=== PATIENT | female | born 1985 | race Caucasian/White ===

== ENCOUNTER 2016-02-26 09:58 | Observation (INO) | payer OTHER ==
[~2016-02-26] VITALS: Ht 167.6 cm; Wt 108.0 kg
[2016-02-26] VITALS (7 sets, daily range): BP systolic 115–124; BP diastolic 66–78
[~2016-02-26 09:58] MED LIST: ALPR0.254 PO; CEFAZOLIN 1GM IVPB FOR OMNI 50 ML IV PRN; CITA20TA5 PO; FENTANYL PF 100 MCG/2 ML VIAL. IV PRN; GEMF600T3 PO; HYDROMORPHONE 2 MG/ML VIAL. IV PRN; IV RINGERS,LACTATED 1000ML 1,000 ML IV SCH; LEVO25TA4 PO; LIDOCAINE 1% 1 ML SYRINGE. ID PRN; LIDOCAINE 1%/EPI 1:100,000 20 ML VIAL. ONE; METHYLENE BLUE 1% 1 ML VIAL. ONE; ONDANSETRON PF 4 MG/2 ML VIAL. IV PRN; PROAIR HFA8.5 GM INH; PROCHLORPERAZINE 10 MG/2 ML VIAL. IV PRN
[2016-02-26 10:21] LABS: NEG OBC UR NEG; POS OBC UR POS
[2016-02-26] MEDS ORDERED: AMOX1TAB58 PO (10:24)
[2016-02-26] MEDS ORDERED: MIDAZOLAM HCL 2 MG/2 ML VIAL. ONE (10:53)
[2016-02-26] MEDS ORDERED: SEVOFLURANE > 120 MINUTES. IH ONE (10:53)
[2016-02-26] MEDS ORDERED: FENTANYL PF 100 MCG/2 ML VIAL. ONE (10:53)
[2016-02-26] MEDS ORDERED: GLYCOPYRROLATE 1 MG/5 ML VIAL. ONE (10:53)
[2016-02-26] MEDS ORDERED: LIDOCAINE 2% 100 MG/5 ML DISP.SYRIN. ONE (10:54)
[2016-02-26] MEDS ORDERED: PROPOFOL 20 ML IV ONE (10:54)
[2016-02-26] MEDS ORDERED: ROCURONIUM 50 MG/5 ML VIAL. ONE (10:54)
[2016-02-26] MEDS ORDERED: KETOROLAC 30 MG/ML SYRINGE FOR OR. INJ ONE (10:54)
[2016-02-26] MEDS ORDERED: DEXAMETHASONE SOD PHOS 20 MG/5 ML VIAL. ONE (10:54)
[2016-02-26] MEDS ORDERED: ONDANSETRON PF 4 MG/2 ML VIAL. ONE (10:54)
[2016-02-26] MEDS ORDERED: NEOSTIGMINE METHYLSULFATE 5 MG/5 ML SYRINGE. ONE (10:54)
[2016-02-26 11:01] LABS: BASO # 0.1 x10^3/uL (0.0-0.2); BASO % 1 % (0-3); EOS % 3 % (0-3); HEMATOCRIT 43.9 % (36.0-47.0); HEMOGLOBIN 15.1 g/dL (12.0-15.5); LYMPH # 3.6 x10^3/uL (1.0-4.8); LYMPH % 34 % (24-48); MEAN CORPUSCULAR HEMOGLOBIN 31 pg (25-35); MEAN CORPUSCULAR HGB CONC 34 g/dL (31-37); MEAN CORPUSCULAR VOLUME 90 fL (79-100); MONO % 8 % (0-9); NEUT % 53 % (31-73); PLATELET COUNT 394 x10^3/uL (140-400); RED BLOOD COUNT 4.87 x10^6/uL (3.50-5.40); RED CELL DISTRIBUTION WIDTH 12.6 % (11.5-14.5); WHITE BLOOD COUNT 10.5 x10^3/uL (4.0-11.0)
[2016-02-26] MEDS ORDERED: ACETAMINOPHEN INTRAVENOUS 100 ML IV ONE (11:44)
[2016-02-26] MEDS ORDERED: CEFAZOLIN 1GM IVPB FOR OMNI 50 ML IV ONE (11:56)
--- NOTE | 2016-02-26 12:19 | PDOC ---
BRIEF OPERATIVE NOTE Pre-Op Diagnosis AUB Post-Op Diagnosis Same Procedure Performed TV Surgeon Dr. Perales Anesthesia Type: General Blood Loss 100 ml Specimens Obtained uterus and cervix Findings enlarged uterus, nml fallopian tubes and ovaries emil. Complications none Additional Remarks ptSHONNA Garber Jr, MD Feb 26, 2016 12:19
[2016-02-26] MEDS ORDERED: ONDANSETRON PF 4 MG/2 ML VIAL. IV PRN (12:30)
[2016-02-26] MEDS ORDERED: DIPHENHYDRAMINE 50 MG/ML VIAL IV PRN (12:30)
[2016-02-26] MEDS ORDERED: PROCHLORPERAZINE 10 MG/2 ML VIAL. IV PRN (12:30)
[2016-02-26] MEDS ORDERED: KETOROLAC TROMETHAMINE 30 MG/ML SYRINGE. IV PRN (12:30)
[2016-02-26] MEDS ORDERED: CALCIUM CARBONATE 500 MG TAB.CHEW PO PRN (12:30)
[2016-02-26] MEDS ORDERED: DIPHENHYDRAMINE HCL 25 MG CAPSULE PO PRN (12:30)
[2016-02-26] MEDS ORDERED: ZOLPIDEM 5 MG TABLET. PO PRN (12:30)
[2016-02-26] MEDS ORDERED: SIMETHICONE 80 MG TAB.CHEW PO PRN (12:30)
[2016-02-26] MEDS ORDERED: DEXTROSE 50% 25 GM / 50ML DISP.SYRIN. IV PRN (12:30)
[2016-02-26] MEDS ORDERED: 0.9 % SODIUM CHLORIDE 10 ML DISP.SYRIN. IV PRN (12:30)
[2016-02-26] MEDS: FENTANYL PF 100 MCG/2 ML VIAL. IV PRN ×2 (12:40→12:51)
[2016-02-26] MEDS: MORPHINE SULFATE 2 MG/ML DISP.SYRIN. IV PRN ×2 (13:01→13:15)
[2016-02-26] MEDS: OXYCODONE/APAP 5/325 TABLET. PO PRN ×2 (15:22→19:42)
[2016-02-26] MEDS: NICOTINE 14MG PATCH. TD PRN (18:33)
--- NOTE | 2016-02-26 19:28 | OP ---
DATE OF SURGERY: PREOPERATIVE DIAGNOSES: Abnormal uterine bleeding. POSTOPERATIVE DIAGNOSES: Abnormal uterine bleeding. PROCEDURE: Transvaginal hysterectomy. SURGEON: Shonna Perales MD. ANESTHESIA: GETA. ESTIMATED BLOOD LOSS: 100 mL. COMPLICATIONS: None. FINDINGS: Enlarged uterus, normal fallopian tubes and ovaries bilaterally. SUMMARY: A 30-year-old with abnormal uterine bleeding, unresponsive to medical treatment or endometrial ablation. She was counseled on transvaginal hysterectomy. Risks, benefits and expectations and voiced a clear understanding to proceed. DESCRIPTION OF PROCEDURE: The patient was taken to surgery suite and placed in dorsal lithotomy position. She was prepped with Betadine solution and draped in a sterile fashion. After adequate anesthesia, a weighted speculum and curved Richelle placed vaginally. The anterior and posterior lip of the cervix were grasped with Santiago clamps. Lidocaine 1% with epinephrine was injected in the cervix in a circumferential manner. Bovie cautery was utilized to circumscribe the cervix. The vaginal mucosa was dissected away from the lower uterine segment using blunt dissection with a moist Ray-Michelle. The parametrial tissue was clamped bilaterally with curved Ekta clamps, cut and suture ligated with 2-0 Vicryl suture. Posterior cul-de-sac was entered sharply with curved Ritter scissors. The long weighted speculum was placed. Uterosacral ligaments were clamped bilaterally, cut and suture ligated. The anterior cul-de-sac was entered sharply with Metzenbaum scissors. The cardinal ligaments were clamped bilaterally, cut and suture ligated. The uterus was then retroverted. The round ligament and uteroovarian pedicles were clamped bilaterally, cut and suture ligated. The uterus and cervix were then removed. The fallopian tubes and ovaries appeared normal. A modified Sheriff's culdoplasty was performed incorporating the uterosacral ligaments bilaterally. The remainder of the vaginal cuff was reapproximated using 2-0 Vicryl suture in a [id number] manner. Moist vaginal packing was placed. The patient tolerated the procedure well and was taken to recovery room in stable condition. Sponge and needle count correct x 3. SHONNA PERALES MD DR: LUCILLE/arnie JOB#: [id number] / [id number]
[2016-02-26] MEDS: GABAPENTIN 300 MG CAPSULE. PO SCH (21:56)
[2016-02-27] MEDS ORDERED: PNEUMOCOCCAL VAX SCREEN BY RX. MC PRN (01:15)
[2016-02-27] MEDS: OXYCODONE/APAP 5/325 TABLET. PO PRN ×3 (04:28→13:38)
[2016-02-27 05:13] LABS: BASO % 0 % (0-3); EOS % 0 % (0-3); HEMATOCRIT 38.7 % (36.0-47.0); HEMOGLOBIN 12.8 g/dL (12.0-15.5); LYMPH # 1.5 x10^3/uL (1.0-4.8); LYMPH % 10 % (24-48); MEAN CORPUSCULAR HEMOGLOBIN 30 pg (25-35); MEAN CORPUSCULAR HGB CONC 33 g/dL (31-37); MEAN CORPUSCULAR VOLUME 92 fL (79-100); MONO % 5 % (0-9); NEUT % 84 % (31-73); PLATELET COUNT 339 x10^3/uL (140-400); RED BLOOD COUNT 4.22 x10^6/uL (3.50-5.40); RED CELL DISTRIBUTION WIDTH 12.9 % (11.5-14.5)
[2016-02-27 05:57] VITALS: BP 123/78
[2016-02-27] MEDS: GABAPENTIN 300 MG CAPSULE. PO SCH (08:45)
[2016-02-27 08:57] VITALS: BP 118/81
[2016-02-27] MEDS ORDERED: PNEUMOC CONJ VACC 23-VALENT 0.5 ML VIAL. VAX IM ONE (09:00)
[2016-02-27 09:07] VITALS: BP 118/81
[2016-02-27] MEDS ORDERED: BENZOCAINE/MENTHOL LOZENGE. PO PRN (11:00)
[2016-02-27] MEDS ORDERED: GUAIFENESIN/CODEINE 100mg/10mg 5 ML LIQUID. PO PRN (11:00)
[2016-02-27] MEDS: NICOTINE 14MG PATCH. TD PRN (11:34)
--- NOTE | 2016-02-27 14:45 | PDOC ---
SURGICAL PROGRESS NOTE Subjective Pt. feeling well. Pain controlled. She has dry cough and requests cough medicine Vital Signs Vital Signs Date Time Temp Pulse Resp B/P Pulse Ox O2 Delivery O2 Flow Rate FiO2 02/27/16 13:38 18 Room Air 02/27/16 09:07 97.8 98 118/81 94 2.0 97.8 I&O Intake and Output 02/27/16 07:00 Intake Total 2250 ml Output Total 400 ml Balance 1850 ml Intake Oral 800 ml IV Total 1450 ml Output Urine Total 400 ml PATIENT HAS A STOUT: No General: Alert, Oriented X3, Cooperative HEENT: Atraumatic Lungs: Clear to auscultation Heart: Regular rate Abdomen: Normal bowel sounds, Soft, No tenderness Psych/Mental Status: Mental status NL Labs Laboratory Tests Test 02/26/16 10:15 02/26/16 10:35 02/27/16 04:00 Urine Test Negative (NEG) White Blood Count 10.5x10^3/uL (4.0-11.0) 15.0x10^3/uL (4.0-11.0) Red Blood Count 4.87x10^6/uL (3.50-5.40) 4.22x10^6/uL (3.50-5.40) Hemoglobin 15.1g/dL (12.0-15.5) 12.8g/dL (12.0-15.5) Hematocrit 43.9% (36.0-47.0) 38.7% (36.0-47.0) Mean Corpuscular Volume 90fL (79-100) 92fL (79-100) Mean Corpuscular Hemoglobin 31pg (25-35) 30pg (25-35) Mean Corpuscular Hemoglobin Concent 34g/dL (31-37) 33g/dL (31-37) Red Cell Distribution Width 12.6% (11.5-14.5) 12.9% (11.5-14.5) Platelet Count 394x10^3/uL (140-400) 339x10^3/uL (140-400) Neutrophils (%) (Auto) 53% (31-73) 84% (31-73) Lymphocytes (%) (Auto) 34% (24-48) 10% (24-48) Monocytes (%) (Auto) 8% (0-9) 5% (0-9) Eosinophils (%) (Auto) 3% (0-3) 0% (0-3) Basophils (%) (Auto) 1% (0-3) 0% (0-3) Neutrophils # (Auto) 5.6x10^3uL (1.8-7.7) 12.6x10^3uL (1.8-7.7) Lymphocytes # (Auto) 3.6x10^3/uL (1.0-4.8) 1.5x10^3/uL (1.0-4.8) Monocytes # (Auto) 0.9x10^3/uL (0.0-1.1) 0.8x10^3/uL (0.0-1.1) Eosinophils # (Auto) 0.3x10^3/uL (0.0-0.7) 0.0x10^3/uL (0.0-0.7) Basophils # (Auto) 0.1x10^3/uL (0.0-0.2) 0.0x10^3/uL (0.0-0.2) Laboratory Tests Test 02/27/16 04:00 White Blood Count 15.0x10^3/uL (4.0-11.0) Red Blood Count 4.22x10^6/uL (3.50-5.40) Hemoglobin 12.8g/dL (12.0-15.5) Hematocrit 38.7% (36.0-47.0) Mean Corpuscular Volume 92fL (79-100) Mean Corpuscular Hemoglobin 30pg (25-35) Mean Corpuscular Hemoglobin Concent 33g/dL (31-37) Red Cell Distribution Width 12.9% (11.5-14.5) Platelet Count 339x10^3/uL (140-400) Neutrophils (%) (Auto) 84% (31-73) Lymphocytes (%) (Auto) 10% (24-48) Monocytes (%) (Auto) 5% (0-9) Eosinophils (%) (Auto) 0% (0-3) Basophils (%) (Auto) 0% (0-3) Neutrophils # (Auto) 12.6x10^3uL (1.8-7.7) Lymphocytes # (Auto) 1.5x10^3/uL (1.0-4.8) Monocytes # (Auto) 0.8x10^3/uL (0.0-1.1) Eosinophils # (Auto) 0.0x10^3/uL (0.0-0.7) Basophils # (Auto) 0.0x10^3/uL (0.0-0.2) Problem List Problems Medical Problems: (1) Abnormal uterine bleeding (AUB) Status: Acute Assessment/Plan POD#1 s/p TVH P: D/c home Problems: SHONNA LYMAN Jr, MD Feb 27, 2016 14:45
--- NOTE | 2016-02-27 14:47 | DISCH ---
DISCHARGE INSTRUCTIONS Condition on Discharge Condition on Discharge: Stable Activity After Discharge Activity Instructions for Disc: Activity as tolerated Lifting Instructions after Dis: No heavy lifting Driving Instructions after Dis: Do not drive today Diet after Discharge Diet after Discharge: Regular Contacting the DRSergio after DC Call your doctor for: Concerns you may have Follow-Up Follow up with: Dr. Perales in 2 weeks. SHONNA PERALES Jr, MD Feb 27, 2016 14:47
[2016-02-27] MEDS ORDERED: BENZ1LOZ48 PO (14:53)
[2016-02-27] MEDS ORDERED: OXYC-323 PO (14:53)
[2016-02-27] MEDS ORDERED: IBUP-1060 PO (14:53)
[2016-02-27] MEDS ORDERED: DOCU-27 PO (14:53)
[2016-02-27] MEDS ORDERED: GUAI5LIQ PO (14:53)
[2016-02-27 16:32] VITALS: BP 123/84
--- NOTE | 2016-03-01 15:46 | PATHOLOGY ---
PATHOLOGY REPORT * * * * * * * * FINAL DIAGNOSIS: Uterus, total vaginal hysterectomy: - Adenomyosis, uterine corpus, with mild myometrial hypertrophy (uterine weight 108 grams). - Chronic cervicitis with focal squamous metaplasia. - Endocervical polyp. - Nabothian cysts. - Proliferative endometrium. COMMENT: There is no evidence of malignancy. (JPM:mgr; d/t: 03/01/16) REPORT ELECTRONICALLY SIGNED BY: Evaristo Mckoy M.D. DATE/TIME: 03/01/2016 15:28 * * * * * * * * GROSS PATHOLOGY: The specimen is received in formalin, labeled "Nathan Lamb-uterus and cervix." Received is a 108 g uterus with attached cervix. The uterus measures 9.1 cm from fundus to cervix, 5.7 cm from cornu, and 3.8 cm from anterior to posterior. The specimen is oriented using the peritoneal reflection. The serosa is pink-anderson, diffusely hemorrhagic, wrinkled, and displays adhesions. The 4.7 x 4.1 cm cervix displays a 1.3 cm slit-like os. The ectocervical mucosa is pink-anderson and wrinkled. Sectioning of the cervix reveals multiple uniloculated cysts filled with mucus ranging from 0.2-0.8 cm in greatest dimension. The pink-anderson and corrugated endocervical canal measures 3.2 cm in length and 0.5 cm in width. The hemorrhagic, shaggy, and triangular endometrial cavity measures 3.6 cm in length and 1.8 cm from cornu to cornu. The pink-anderson endometrium measures 0.1 cm in thickness. The pink-anderson myometrium measures 1.8 cm in maximum thickness. Sectioning reveals 3 white-anderson, whorled, intramural, and possible fibroids ranging from 0.3-0.5 cm in greatest dimension. The remaining myometrium is pink-anderson and trabeculated. Fur Buyer sections are submitted as follows: A1 anterior cervix A2-A3 posterior cervix A4 full-thickness section of anterior endomyometrium and serosa A5 full-thickness section of posterior endomyometrium and serosa A6 possible fibroids (TTL; 02/27/2016) INITIAL CPT CODE(S): A; 50878 Professional services performed by [facility] at [address] [id number] [place] [address] Technical services performed by [facility] at [address] [place] [address], [address], [place] [address]. SPECIMEN(S) RECEIVED: A.Uterus and cervix CLINICAL HISTORY: Abnormal uterine bleeding PATIENT: SHANICEElissa NATHAN Reynolds /AGE: 911/07/1985 (Age: 30) PATIENT #: [id number] ALT CASE #: SPECIMEN COLLECTION DATE: 02/26/2016 SPECIMEN RECEIVED DATE: 02/26/2016 [facility] - [id number] [place] [address] - PHONE: [phone] * * * END OF REPORT * * *
== END 2016-02-27 18:26 | disposition home or self-care (01) ==
LOC: SURG 09:58 → 3 NORTH 12:36
PROVIDERS: ADMIT Obstetrics & Gynecology; ATTEND Obstetrics & Gynecology
DX: N93.9 Abnormal uterine and vaginal bleeding, unspecified (principal); Z23 Encounter for immunization
CPT/HCPCS: 36415; 58260; 81025; 85027; 86850; 86900; 86901; 88307; 90471; 90732; 96374; G0378; G0379; J0131; J0690; J1100; J1885; J2250; J2270; J2405; J2704; J2710; J3010; J3490; J7120; Q9968